=== PATIENT | female | born 1950 | race Caucasian/White ===

== ENCOUNTER 2021-02-21 22:35 | Observation (INO) | payer MEDICARE, BC ==
[~2021-02-21] VITALS: Ht 154.9 cm; Wt 90.0 kg
[~2021-02-21 22:35] MED LIST: AMOXICILLIN500 MG PO; ASPIRIN LOW DOS81 M2 PO; FLEXERIL PO; LEVOTHYROXIN125 MC1 PO; LEVOTHYROXIN150 MCG PO; LISINOPRIL10 MG PO; LORTAB 7.57.5 MG PO; PERCOCET 5/321 COMBO PO; PRAVASTATIN20 MG PO; PREVACID30 M1 PO; PRILOSEC20 MG PO; STOOL SOFTENER100 MG PO; ZITHROMAX500 MG PO; ZYRTEC10 MG PO
--- NOTE | 2021-02-21 22:39 | NUR ---
TO TX ROOM VIA W/C
--- NOTE | 2021-02-21 23:14 | NUR ---
Reassessment of patient completed. No distress noted.
[2021-02-21 23:23] LABS: HEMOGLOBIN 13.7 g/dl (12.0-16.0); IMMATURE GRANULOCYTES 0.4 % (0.0-5.0); MEAN CELL VOLUME 87.4 fL CALC (80.0-100.0); MEAN CORPUSCULAR HGB 27.8 pG CALC (26.0-32.0); MEAN CORPUSCULAR HGB CONC 31.9 g/dL CAL (32.0-36.0); NEUT# 3.84 thou/uL (2.00-7.15); RED BLOOD COUNT 4.92 mill/uL (4.20-5.60); RED CELL DISTRI WIDTH 13.9 % (11.5-15.5)
[2021-02-21 23:42] LABS: INTERNATIONAL NORMALIZED RATIO 1.1 RATIO (0.7-1.3); PROTHROMBIN TIME 10.7 SECONDS (9.0-12.5)
[2021-02-21 23:43] LABS: ALBUMIN 4.4 g/dL (3.2-5.0); ALKALINE PHOSPHATASE 93 u/l (38-126); ANION GAP 13 (6-22 (CALC)); BUN 13 mg/dL (8-23); BUN/CREATININE RATIO 15 (12-20 (CALC)); CARBON DIOXIDE 28 mmol/l (22-30); CHLORIDE 103 mmol/l (95-108); CREATININE 0.9 mg/dL (0.5-1.0); GFR > 60 ML/MIN (>=60 (CALC)); GFR FOR AFR.AMER. > 60 ML/MIN (>=60 (CALC)); LIPASE 242 u/l (23-300); POTASSIUM 4.3 mmol/l (3.5-5.1); SGOT/AST 22 u/l (9-36); SODIUM 139 mmol/l (137-146); TOTAL PROTEIN 7.8 g/dL (6.3-8.2)
[2021-02-21 23:47] LABS: BILIRUBIN, TOTAL 0.6 mg/dL (0.0-1.4)
[2021-02-22 00:13] LABS: TSH, 3RD GENERATION 3.85 uIU/mL (0.47 - 4.68)
--- NOTE | 2021-02-22 02:09 | NUR ---
ROOM 261 ASSIGNED TO PT AT THIS TIME, ROOM PREPARED TO RECEIVE PT.
--- NOTE | 2021-02-22 02:15 | NUR ---
TELEPHONE REPORT RECEIVED FROM Angela FLORES RN IN ER.
--- NOTE | 2021-02-22 02:21 | NUR ---
Admission Note Report Given to: SUGEY Transported by: Wheelchair X Stretcher Transported with: X Nurse Transporter X Patent IV O2 X Alpine Guide Location: ICU X [facility]2
[2021-02-22 02:27] VITALS: BP 133/76
--- NOTE | 2021-02-22 02:27 | NUR ---
AT 0227 PT ARRIVES TO UNIT VIA WC, ACCOMPANIED BY Jordan CRAVEN RN. ADMITTED TO ROOM 261. AMBULATORY TO BED.
--- NOTE | 2021-02-22 02:45 | NUR ---
PATIENT AWAKE AND ASKING FOR MORE PAIN MEDS-STATES THAT HE JUST WOKE UP. PATIENT ADVISED THAT HE WILL BE ABLE TO HAVE MORE PAIN MEDS IN APPROX 1/2 HOUR PER PRN SCHEDULE. VERBALIZES UNDERSTANDING. DENIES ANY NAUSEA-ASKING FOR ICE CHIPS-PROVIDED WITH SMALL AMT OF ICE CHIPS AND TOLERATING WELL AT THIS TIME. IVF NS PATENT AND INFUSING VIA LEFT FOREARM SITE AT 125CC/HR. VOIDING QS JUANA U RINE IN URINAL. CALL LIGHT IN REACH. WILL CONT TO MONITOR.
[2021-02-22 06:11] VITALS: BP 104/66
[2021-02-22 07:05] VITALS: BP 129/85
[2021-02-22] MEDS ORDERED: LEVOTHYROXIN137 MCG PO (07:07)
[2021-02-22] MEDS ORDERED: LOPRESSOR 550 MG/TAB PO (07:07)
--- NOTE | 2021-02-22 07:30 | NUR ---
PATIENT LAYING IN BED AT THIS TIME PATINET ALET AND ORINETED X 3 DENIES ANY PIAN AT THIS TIME. 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 TRACE EDEMA NOTED ON LOWER ANKELS PULSES STRON. SIDERAILS UP X 2 CALL LIGHT AND PERSONAL ITEMS WITHIN REACH.
--- NOTE | 2021-02-22 09:13 | NUR ---
CALLED DR. FUENTES OFFICE AT [phone] SPOKE TO JAIMIE GAVE PT INFORMATION TO HER AND SHE STATED TELL HIM ABOUT THE CONSULATION.
[2021-02-22 09:19] LABS: HEMATOCRIT 40.7 % (37.0-47.0); HEMOGLOBIN 12.8 g/dl (12.0-16.0); MEAN CELL VOLUME 87.9 fL CALC (80.0-100.0); MEAN CORPUSCULAR HGB 27.6 pG CALC (26.0-32.0); MEAN CORPUSCULAR HGB CONC 31.4 g/dL CAL (32.0-36.0); RED BLOOD COUNT 4.63 mill/uL (4.20-5.60); RED CELL DISTRI WIDTH 13.9 % (11.5-15.5)
--- NOTE | 2021-02-22 10:00 | NUR ---
HEPARIN DRIP D/C AT THIS TIME PATIENT PER PHYSICIAN ORDER. PATIENT TO START XERELTO LATER TODAY.
[2021-02-22 10:06] LABS: ANION GAP 10 (6-22 (CALC)); BUN 11 mg/dL (8-23); BUN/CREATININE RATIO 15 (12-20 (CALC)); CALCULATED LDLCHOLESTEROL 72 mg/dL (62-129 (CALC)); CARBON DIOXIDE 29 mmol/l (22-30); CHLORIDE 104 mmol/l (95-108); CREATININE 0.8 mg/dL (0.5-1.0); GFR > 60 ML/MIN (>=60 (CALC)); GFR FOR AFR.AMER. > 60 ML/MIN (>=60 (CALC)); HDL CHOLESTEROL 44 mg/dL (>=40); MAGNESIUM 1.9 mg/dL (1.6-2.3); SODIUM 138 mmol/l (137-146); TOTAL CHOLESTEROL 133 mg/dl (0-199); TOTAL TRIGLYCERIDES 88 mg/dl (30-149); VLDL CHOLESTROL 18 mg/dl (1-41 (CALC))
[2021-02-22 10:30] VITALS: BP 139/74
--- NOTE | 2021-02-22 12:16 | NUR ---
pt has a visitor downstairs. 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 they called again and couldn't understand why the refusal to let them come up.
--- NOTE | 2021-02-22 12:41 | NUR ---
SPOKE TO PATIENT ABOUT PASTORAL CARE AND IF SHE NEEDED IT AND PATIENT STATED "NO". PATIENT STATED SHE WANTS TO SAVE HER VISITATION TIME FOR HER AND PATIENT ASKED IF THEY COME BACK CAN I EXPLAIN THIS FOR HER. I STATED I WOULD BE MORE THAN HAPPY TO TALK TO THEM.
[2021-02-22 15:45] VITALS: BP 154/84
--- NOTE | 2021-02-22 16:00 | NUR ---
PATIENT DENIES ANY PAIN AND OR NEEDS AT THIS TIME. PATIENT SITTING UP IN CHAIR AT THIS TIME. CALL LIGHT AND PERSONAL ITEMS WIHTIN REACH.
[2021-02-22 19:00] VITALS: BP 150/81
--- NOTE | 2021-02-22 19:45 | NUR ---
ECHO PERFORMED AT BEDSIDE BY TECH. SEE ECHO REPORT.
--- NOTE | 2021-02-22 20:35 | NUR ---
PT SITTING UP IN RECLINER. PHYSICAL ASSESMENT COMPLETE. PRINTED EDUCATION AND VERBAL DISCUSSION PROVIDED ON FLECAINIDE. SCHEDULED MEDICATION ADMINISTERED, SEE E-MAR. ICE PROVIDED PER PT'S REQUEST. PT DENIES FURTHER NEEDS AT THIS TIME. SB ON TELE. PLAN OF CARE REVIEWED, PT VERBALIZES UNDERSTANDING. CALL CHAIREZ WITHIN REACH, AGREES TO CALL PRN.
[2021-02-23] VITALS: BP 147/83
--- NOTE | 2021-02-23 | NUR ---
PT LAYING IN BED WITH EYES CLOSED, NO APPARENT DISTRESS, RESPIRATIONS REGULAR AND UNLABORED. APPEARS TO BE SLEEPING COMFORTABLY. CALL CHAIREZ REMAINS WITHIN REACH.
[2021-02-23 04:00] VITALS: BP 131/70
--- NOTE | 2021-02-23 04:05 | NUR ---
NOEMI ETL APPLICATION DEVELOPER IN ROOM TO DRAW AM LABS.
[2021-02-23 05:47] LABS: HEMATOCRIT 42.8 % (37.0-47.0); HEMOGLOBIN 13.4 g/dl (12.0-16.0); IMMATURE GRANULOCYTES 0.5 % (0.0-5.0); MEAN CELL VOLUME 88.8 fL CALC (80.0-100.0); MEAN CORPUSCULAR HGB 27.8 pG CALC (26.0-32.0); MEAN CORPUSCULAR HGB CONC 31.3 g/dL CAL (32.0-36.0); NEUT# 3.27 thou/uL (2.00-7.15); RED BLOOD COUNT 4.82 mill/uL (4.20-5.60)
[2021-02-23 06:08] LABS: ANION GAP 12 (6-22 (CALC)); BUN 11 mg/dL (8-23); BUN/CREATININE RATIO 16 (12-20 (CALC)); CHLORIDE 105 mmol/l (95-108); CREATININE 0.7 mg/dL (0.5-1.0); GFR > 60 ML/MIN (>=60 (CALC)); GFR FOR AFR.AMER. > 60 ML/MIN (>=60 (CALC)); SODIUM 136 mmol/l (137-146)
[2021-02-23 06:16] LABS: CARBON DIOXIDE 23 mmol/l (22-30)
[2021-02-23 07:05] VITALS: BP 137/73
--- NOTE | 2021-02-23 07:15 | NUR ---
PATIENT SITTING UP IN RECLINER AT THIS TIME. DENIES ANY PAIN, ROAD SIGN INSTALLER DONE AT THIS TIME SEE INTERVENTIONS. CALL LIGHT IS WITHIN REACH TELE MONITOR REMAINS IN PLACE AND BEING MONITOR BY ED.
[2021-02-23] MEDS ORDERED: FLECAINIDE50 MG PO (09:25)
[2021-02-23] MEDS ORDERED: XARELTO20 MG PO (09:26)
[2021-02-23 10:35] VITALS: BP 150/74
--- NOTE | 2021-02-23 11:00 | NUR ---
PATIENT D/C AT THIS TIME. PATIENT VERBALIZES DISCHARGE INSTRUCTIONS AT THIS TIME. PATIENTS TELE MONITORED REMOVED AT THIS TIME ED NOTIFIED OF REMOVAL.
--- NOTE | 2021-02-23 11:18 | NUR ---
Discharge instructions given. Patient verbalizes understanding of same. Discharged in stable condition via Wheelchair to Home with family. All belongings sent with pt.
== END 2021-02-23 11:16 | disposition home or self-care (01) ==
LOC: ED 22:35 → ED-I 23:12 → ED 23:12 → ED-I 02-22 01:15 → ED 02-22 01:29 → MS2 02-22 01:30
PROVIDERS: Emergency Medicine; Nurse Practitioner; ADMIT Internal Medicine; ATTEND Internal Medicine
DX: I48.0 Paroxysmal atrial fibrillation (principal); R00.1 Bradycardia, unspecified; R07.9 Chest pain, unspecified; I10 Essential (primary) hypertension; E03.9 Hypothyroidism, unspecified; E78.5 Hyperlipidemia, unspecified; E66.9 Obesity, unspecified; K21.9 Gastro-esophageal reflux disease without esophagitis; M54.5 Low back pain; M25.552 Pain in left hip; G89.29 Other chronic pain; T44.7X5A Adverse effect of beta-adrenoreceptor antagonists, initial encounter; Z68.37 Body mass index [BMI] 37.0-37.9, adult; Z82.49 Family history of ischemic heart disease and other diseases of the circulatory system; Z20.822 Contact with and (suspected) exposure to COVID-19
CPT/HCPCS: G0378; J1644; Q9967

== ENCOUNTER 2021-03-21 18:18 | Emergency (ER) | payer MEDICARE, BC ==
[~2021-03-21] VITALS: Ht 154.9 cm; Wt 89.0 kg
[~2021-03-21 18:18] MED LIST changes: +FLECAINIDE50 MG PO; +LEVOTHYROXIN137 MCG PO; +LOPRESSOR 550 MG/TAB PO; +XARELTO20 MG PO
[2021-03-21 18:42] LABS: HEMATOCRIT 41.8 % (37.0-47.0); HEMOGLOBIN 13.3 g/dl (12.0-16.0); IMMATURE GRANULOCYTES 0.5 % (0.0-5.0); MEAN CELL VOLUME 87.4 fL CALC (80.0-100.0); MEAN CORPUSCULAR HGB 27.8 pG CALC (26.0-32.0); MEAN CORPUSCULAR HGB CONC 31.8 g/dL CAL (32.0-36.0); NEUT# 6.69 thou/uL (2.00-7.15); RED BLOOD COUNT 4.78 mill/uL (4.20-5.60)
[2021-03-21 18:59] LABS: ALKALINE PHOSPHATASE 89 u/l (38-126); ANION GAP 12 (6-22 (CALC)); BILIRUBIN, TOTAL 0.7 mg/dL (0.0-1.4); BUN 17 mg/dL (8-23); BUN/CREATININE RATIO 17 (12-20 (CALC)); CARBON DIOXIDE 25 mmol/l (22-30); CHLORIDE 97 mmol/l (95-108); GFR 55 ML/MIN (>=60 (CALC)); GFR FOR AFR.AMER. > 60 ML/MIN (>=60 (CALC)); POTASSIUM 4.3 mmol/l (3.5-5.1); SGOT/AST 28 u/l (9-36); SODIUM 130 mmol/l (137-146); TOTAL PROTEIN 7.9 g/dL (6.3-8.2)
[2021-03-21 20:07] VITALS: BP 102/60
== END 2021-03-21 20:16 | disposition home or self-care (01) ==
LOC: ED 18:18
PROVIDERS: Family Medicine
DX: I48.91 Unspecified atrial fibrillation (principal); I10 Essential (primary) hypertension; K21.9 Gastro-esophageal reflux disease without esophagitis; E78.5 Hyperlipidemia, unspecified; Z79.01 Long term (current) use of anticoagulants